=== PATIENT | female | born 1945 | race Caucasian/White ===

== ENCOUNTER → 2018-04-03 | Outpatient (CLI) | payer MEDICARE ==
[2018-04-03 10:55] LABS: ABSOLUTE EOSINOPHILS 0.1 thou/uL (0.0-0.7); ABSOLUTE LYMPHOCYTES 2.7 thou/uL (0.8-5.3); ABSOLUTE MONOCYTES 0.3 thou/uL (0.0-1.2); ABSOLUTE NEUTROPHILS 3.4 thou/uL (1.6-8.1); BASOPHILS 0.4 %; EOSINOPHILS 1.2 %; HEMATOCRIT 43.1 % (37.0-47.0); HEMOGLOBIN 14.5 gm/dL (12.0-15.0); MCH 31.2 pg (26.0-34.0); MCHC 33.7 g/dL (28.0-37.0); MCV 92.6 fL (80.0-100.0); MONOCYTES 4.9 %; MPV 8.3 fl. (7.2-11.1); NUCLEATED RBCS 0 /100WBC; PLATELET COUNT* 243 thou/uL (150-400); POLYS 52.5 %; RBC 4.65 mil/uL (4.20-5.00); RDW-CV 13.9 % (10.5-14.5); WBC 6.5 thou/uL (4.0-11.0)
[2018-04-03 11:08] LABS: ALBUMIN 3.2 g/dL (3.4-5.0); CALCIUM 8.6 mg/dL (8.5-10.1); CREATININE 0.8 mg/dL (0.6-1.3); TOTAL BILIRUBIN 0.4 mg/dL (<0.1-1.0); TOTAL PROTEIN 7.5 g/dL (6.4-8.2)
[2018-04-03 21:08] LABS: LDL (DIRECT) CHOL 145 mg/dL (0-99)
== END ==
LOC: M.RAD 10:03 → M.LAB 10:03
PROVIDERS: Obstetrics & Gynecology Gynecologic Oncology
DX: Z12.31 Encounter for screening mammogram for malignant neoplasm of breast (principal); I82.0 Budd-Chiari syndrome; E55.9 Vitamin D deficiency, unspecified; R53.1 Weakness; R05 Cough; R06.02 Shortness of breath; R79.89 Other specified abnormal findings of blood chemistry; C54.1 Malignant neoplasm of endometrium